=== PATIENT | male | born 1960 | race Caucasian/White ===

== ENCOUNTER → 2018-02-09 | Outpatient (CLI) | payer BC, OTHER ==
[~2018-02-09] MED LIST: CHOL10005 PO; CIPR-345 PO; LEV112 PO; LEVO50TA80 PO; MULT-885 PO; MULT1TAB64 PO; PHEN-530 PO; TAMS0.4C25 PO
[2018-02-09 09:31] VITALS: BP 117/91
== END ==
LOC: SPU 09:11
PROVIDERS: ATTEND Nurse Practitioner Psychiatric/Mental Health
DX: E03.9 Hypothyroidism, unspecified (principal)
CPT/HCPCS: 36415; 84153

== ENCOUNTER 2018-02-13 12:30 | Outpatient (RCR) | payer BC, OTHER | END 2018-02-27 09:48 | disposition home or self-care (01) | LOC: RAON 12:30 | PROVIDERS: ATTEND Radiology Radiation Oncology | DX: Z85.46 Personal history of malignant neoplasm of prostate (principal); Z92.3 Personal history of irradiation; E03.9 Hypothyroidism, unspecified | CPT/HCPCS: 84443; 99212 ==

== ENCOUNTER 2019-02-21 09:00 | Outpatient (RCR) | payer BC, OTHER ==
[2019-02-08 08:21] VITALS: BP 139/102
[2019-02-21 10:04] VITALS: BP 145/95
[2019-02-21] MEDS ORDERED: LEVO75TA68 PO (10:06)
--- NOTE | 2019-02-21 10:49 | HISTORY AND PHYSICAL ---
DATE OF ADMISSION: February 21, 2019 CHIEF COMPLAINT/REASON FOR OFFICE VISIT Known history of prostate carcinoma. Status post prostate brachytherapy. below ongoing cancer surveillance and symptom management. 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 Tumor occupied 50% of total volume. Pretreatment PSA of 15.4 mg/mL. * Stage T1C. * Lupron x1 followed by prostate brachytherapy with Dr. Reed. Brachytherapy completed 03/25/13. INTERVAL HISTORY The patient was seen with his spouse for a follow up appointment. Clinically doing well. Denies any bone pain. PSA is remarkably stable at 0.21 HISTORY OF PRESENT ILLNESS PAST MEDICAL HISTORY * [*] PAST SURGICAL HISTORY * [*] ALLERGIES [*] CURRENT MEDICATIONS * [*] SOCIAL HISTORY [*] FAMILY HISTORY [*] REVIEW OF SYSTEMS [*] PHYSICAL EXAMINATION [*] LABORATORY DATA [*] ASSESSMENT * [*] PLAN [*] MTDD
--- NOTE | 2019-02-21 11:09 | ONCOLOGY FOLLOW UP NOTE ---
EVENT DATE: February 21, 2019 CHIEF COMPLAINT/REASON FOR OFFICE VISIT Known history of prostate carcinoma. Status post prostate brachytherapy. Listed below ongoing cancer surveillance and symptom management. 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 Tumor occupied 50% of total volume. Pretreatment PSA of 15.4 ng/mL. * Stage T1C. * Lupron x1 followed by prostate brachytherapy with Dr. Reed. Brachytherapy completed 03/25/13. INTERVAL HISTORY The patient was seen with his spouse for a follow up appointment. Clinically doing well. Denies any bone pain. PSA is remarkably stable at 0.21 ng/mL with no recovery to date. The patient has good voiding function. He does notice a small amount of dribbling at the end of urination for about 3 to 6 drops only. No dysuria. He does drink moderate coffee. I discussed therapeutic management to correct this. The patient also is being followed by [facility] for the thyroid and has recently had an increased dose of levothyroxine up to 75 mcg q day. He did have a TSH on 02/08/19 which was in the normal range at 4.4. PAST MEDICAL HISTORY * Prostate carcinoma. * History of shingles. * Hypothyroidism. * Allergic rhinitis. MEDICATIONS * Levothyroxine 75 mcg q day. * Multivitamin. * Vitamin D3. FAMILY HISTORY Notable for a father who had pancreatic cancer at age 62. SOCIAL HISTORY Nonsmoker. He enjoys running. 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 He travels extensively. works for the [employer]. Two children. Social alcohol use. COMPREHENSIVE REVIEW OF SYSTEMS Entirely negative other than listed in the HPI. PHYSICAL EXAMINATION GENERAL: Pleasant 58-year-old male, medium-thin build. VITAL SIGNS: BP 145/95, pulse 56, respirations 16, O2 sat 98%. LUNGS: Clear bilaterally. HEART: Sounds regular. ABDOMEN: Soft. No gross organomegaly. RECTAL: Deferred due to subnormal PSA. EXTREMITIES: Reveal no edema or cyanosis. NEURO: Intact. IMPRESSION * No evidence of prostate carcinoma recurrence. The patient now 6 years remote from therapy. * Minor dribbling post-voiding. I think this can be improved with physical therapy/Kegel exercises. He will discuss this with a physical therapist that he is well familiar with and report back to us here. * Decrease caffeine intake. DISPOSITION Return to clinic in one year. At that point, the patient will be potentially released from the oncology clinic as he is very reliable to drop off his PSAs going forward. Overall, I am pleased with his course today and therapeutic response as listed above. MTDD
== END 2019-03-18 13:45 | disposition home or self-care (01) ==
LOC: RAON 09:00
PROVIDERS: ATTEND Radiology Radiation Oncology
DX: C61 Malignant neoplasm of prostate (principal); E03.9 Hypothyroidism, unspecified
CPT/HCPCS: 36415; 84153; 84443